=== PATIENT | male | born 1960 | race Caucasian/White ===

== ENCOUNTER 2018-03-19 08:59 | Day surgery (SDC) | payer OTHER ==
[2018-03-19 09:49] LABS: ADD MAN DIFF? NO
[2018-03-19 09:53] LABS: WHITE BLOOD COUNT 5.3 10^3/ul (4.8-10.8)
[2018-03-19 09:53] LABS: BASOPHIL # 0.1 10^3/ul (0.0-0.1); EOSINOPHILS # 0.1 10^3/ul (0.0-0.5); EOSINOPHILS % 2.7 % (0.0-7.0); HEMATOCRIT 33.3 % (42.0-52.0); HEMOGLOBIN 11.5 g/dl (14.0-18.0); LYMPHOCYTES % 19.8 % (15.0-51.0); MEAN CORPUSCULAR HGB CONC 34.5 g/dl (32.0-37.0); MEAN CORPUSCULAR VOLUME 95.7 fl (82.0-101.0); MEAN PLATELET VOLUME 11.4 fl (7.4-10.4); MONOCYTE # 0.4 10^3/ul (0.3-0.9); MONOCYTES % 7.6 % (0.0-11.0); NEUTROPHIL # 3.6 10^3/ul (1.6-7.5); NEUTROPHILS % 68.5 % (39.0-77.0); PLATELET COUNT 141 10^3/UL (140-415); RED BLOOD COUNT 3.48 10^6/ul (4.70-6.10); RED CELL DISTRIBUTION WIDTH 12.2 % (11.5-14.5)
[2018-03-19 09:59] LABS: ANION GAP 24 (8-16); BLOOD UREA NITROGEN 72 mg/dl (7-20); CALCIUM 10.7 mg/dl (8.4-10.2); CARBON DIOXIDE 28 mmol/L (21-31); CHLORIDE 89 mmol/L (97-110); GLUCOSE 88 mg/dl (70-220); POTASSIUM 5.9 mmol/L (3.5-5.1); SODIUM 135 mmol/L (135-144)
[2018-03-19] MEDS ORDERED: MIDAZOLAM 1 MG/ML 2 ML INJ (10:54)
[2018-03-19] MEDS ORDERED: FENTAnyl 50 MCG/ML VIAL (10:55)
[2018-03-19] MEDS ORDERED: LIDOCAINE 1% (MDV) 20 ML INJ (11:39)
[2018-03-19] MEDS ORDERED: HEPARIN 1000 UNITS/NS (A-LINE) 1,000 ML (11:39)
[2018-03-19] MEDS ORDERED: IODIXANOL LOCM 100 ML BTL (11:39)
[2018-03-19] MEDS ORDERED: IODIXANOL LOCM 50 ML BTL (11:40)
[2018-03-19] MEDS ORDERED: ACETAMINOPHEN 325 MG TAB PO (12:00)
[2018-03-19] MEDS ORDERED: ONDANSETRON 4 MG INJ IV (12:00)
== END 2018-03-19 13:20 | disposition home or self-care (01) ==
LOC: SDS 08:59
DX: I12.0 Hypertensive chronic kidney disease with stage 5 chronic kidney disease or end stage renal disease (principal); N18.6 End stage renal disease; I25.10 Atherosclerotic heart disease of native coronary artery without angina pectoris
CPT/HCPCS: 36901; 80048; 85025